=== PATIENT | female | born 1990 | race Caucasian/White ===

== ENCOUNTER 2016-12-23 22:41 | Emergency (ER) | payer MEDICAID ==
[~2016-12-23] VITALS: Ht 154.9 cm; Wt 54.0 kg
[2016-12-23 22:51] VITALS: Ht 154.9 cm; Wt 54.0 kg
[2016-12-24] MEDS ORDERED: ONDANSETRON (ODT) 4 MG TAB ODT STA (02:05)
[2016-12-24] MEDS ORDERED: ACETAMINOPHEN 325 MG TAB PO STA (02:05)
--- NOTE | 2016-12-24 02:32 | ERD ---
ER Documentation Chief Complaint Date/Time DATE: 12/24/16 TIME: 02:25 Chief Complaint ABD PAIN X 3 DAYS WITH N/V; AND SPOTTING; PT HPI 26-year-old female presents here in emergency department for complaints of lower abdominal pain nausea vomiting and vaginal spotting for 3 days. Patient just recently new that she was , patient supposed to have Depo-Provera shot, patient's LMP 10/16/2016. 3 para 2 0. Patient describes the pain as pelvic pain cramping pain 4/and scale, complaining of vaginal spotting. Patient also feels nauseated and dizzy at times much actually fell today landing on her back, and started to have the spotting afterwards. Patient complaining of lower abdominal pain, sharp pain, worst on movement accompanied with muscle spasms. Patient denies any numbness or tingling. ROS All systems reviewed and are negative except as per history of present illness. Medications Home Meds Active Scripts Acetaminophen* (Tylophen*) 500 Mg Capsule, 1 CAP PO Q6H Y for PAIN AND OR ELEVATED TEMP, #20 CAP Prov:EVA HUERTAS NP 12/24/16 Cephalexin* (Keflex*) 500 Mg Capsule, 500 MG PO QID for 10 Days, CAP Prov:EVA HUERTAS PANEL INSTALLER 12/24/16 Reported Medications [none] Unknown Strength No Conflict Check 12/24/16 Allergies Allergies: Coded Allergies: No Known Allergy (Verified Allergy, Unknown, 02/04/08) PMhx/Soc Medical and Surgical Hx: pt denies Medical Hx, pt denies Surgical Hx Hx Alcohol Use: No Hx Substance Use: No Hx Tobacco Use: No Smoking Status: Never smoker FmHx Family History: No coronary disease, No diabetes, No other Physical Exam Vitals Vital Signs Date Time Temp Pulse Resp B/P Pulse Ox O2 Delivery O2 Flow Rate FiO2 12/23/16 22:51 98.5 68 20 134/69 100 Physical Exam GENERAL: The patient is well developed and appropriate for usual state of health, in no apparent distress. CHEST: Clear to auscultation bilaterally. There are no rales, wheezes or rhonchi. HEART: Regular rate and rhythm. No murmurs, clicks, rubs or gallops. No S3 or S4. ABDOMEN: Soft, nontender and nondistended. Good bowel sounds. No rebound or guarding. No gross peritonitis. No gross organomegaly or masses. No Mcmanus sign or McBurney point tenderness. BACK: No midline or flank tenderness. EXTREMITIES: Equal pulses bilaterally. There is no peripheral clubbing, cyanosis or edema. No focal swelling or erythema. Full range of motion. Grossly neurovascularly intact. NEURO: Alert and oriented. Cranial nerves 2-12 intact. Motor strength in all 4 extremities with 5/5 strength. Sensation grossly intact. Normal speech and gait. SKIN: There is no apparent rash or petechia. The skin is warm and dry. HEMATOLOGIC AND LYMPHATIC: There is no evidence of excessive bruising or lymphedema. No gross cervical, axillary, or inguinal lymphadenopathy. : Small amount of blood in the vaginal vault, the cervical os is closed, no adnexal tenderness or cervical motion tenderness noted Result Diagram: 12/24/16 0245 Results 24 hrs Laboratory Tests Test 12/24/16 02:45 White Blood Count 10.110^3/ul Red Blood Count 4.5510^6/ul Hemoglobin 14.0g/dl Hematocrit 41.4% Mean Corpuscular Volume 91.0fl Mean Corpuscular Hemoglobin 30.8pg Mean Corpuscular Hemoglobin Concent 33.8g/dl Red Cell Distribution Width 13.1% Platelet Count 74804^3/UL Mean Platelet Volume 11.0fl Neutrophils % 74.3% Lymphocytes % 19.7% Monocytes % 4.8% Eosinophils % 0.3% Basophils % 0.6% Nucleated Red Blood Cells % 0.0/100WBC Neutrophils # 7.510^3/ul Lymphocytes # 2.010^3/ul Monocytes # 0.510^3/ul Eosinophils # 0.010^3/ul Basophils # 0.110^3/ul Nucleated Red Blood Cells # 0.010^3/ul Urine Color YELLOW Urine Clarity CLOUDY Urine pH 6.0 Urine Specific [place] 1.020 Urine Ketones 2+mg/dL Urine Nitrite NEGATIVEmg/dL Urine Bilirubin NEGATIVEmg/dL Urine Urobilinogen NEGATIVEmg/dL Urine Leukocyte Esterase 1+Tasneem/ul Urine Microscopic RBC 16/HPF Urine Microscopic WBC 22/HPF Urine Squamous Epithelial Cells MODERATE/HPF Urine Bacteria FEW/HPF Urine Mucus MODERATE/HPF Urine Hemoglobin 3+mg/dL Urine Glucose NEGATIVEmg/dL Urine Total Protein 1+mg/dl Beta HCG, Quantitative 53487.0mIU/ml Current Medications Medications (Trade) Dose Ordered Sig/Carrie Route PRN Reason Start Time Stop Time Status Last Admin Dose Admin Acetaminophen (Tylenol Tab) 650 mg ONCE STAT PO 12/24/16 02:05 12/24/16 02:06 DC 12/24/16 02:37 Ondansetron HCl (Zofran Odt) 4 mg ONCE STAT ODT 12/24/16 02:05 12/24/16 02:06 DC 12/24/16 02:37 Patient was given Zofran here in the emergency department. After treatment, patient was able to tolerate po fluids here in the emergency department without any vomiting. There is no signs and symptoms of dehydration. Patient was given medication for pain here in emergency department, after treatment, patient verbalized feeling much better. Patient's pain is improved. PROCEDURE: Obstetrical ultrasound. CLINICAL INDICATION: Vaginal bleeding. TECHNIQUE: Multiple sonographic images of the pelvis were obtained with transabdominal technique. Images were obtained with alston scale and color Doppler. COMPARISON: No prior studies are available for comparison. FINDINGS: There is an intrauterine gestational sac with a pole identified. heart tones of 161 beats per minute are identified. The crown-rump length averages 1.07 cm, compatible with 7 weeks and 1 day. The mean sac diameter averages 1.72 cm, compatible with 6 weeks and 3 days. A yolk sac is identified. A mild to moderate subchorionic collection is identified. There is no pelvic free fluid. Bilateral ovaries are not visualized. There is no suspicious adnexal mass identified. IMPRESSION: Single live intrauterine with an estimated gestational age of 6 weeks and 6 days, with an ultrasound NIRMAL of 08/13/2017. Mild to moderate subchorionic hemorrhage. Bilateral ovaries not visualized. .Jae Henry MD, Date Time Electronically viewed and signed by .Jae Henry MD, on 12/24/2016 04:07 .T/ CC: EVA HUERTAS PANEL INSTALLER Procedures/MDM Medical Decision Making: Patients vaginal bleeding is most likely consistent of possible threatened . Patient does not show any evidence of hypovolemic shock. Patients hemoglobin and hematocrit is stable. There is low suspicion for ectopic . MAI results show viable 6 weeks with subchorionic hemorrhage. BetaHCG Quantitative is appropriate for The patient is Rh+, does not need RhoGAM this time. There is no signs of symptoms of dehydration. There is low suspicion for sepsis. Patient appears well and is hemodynamically stable. His lactate most likely from a back contusion after fall. Patient's nausea vomiting dizziness most likely is from the hormones. No suspicion for neurologic emergencies or abdominal emergencies at this time. She also has urinary tract infection and will be treated. No symptoms of pyelonephritis. Disposition: Home. Condition: Stable Prescription was given for Keflex, Tylenol Instructions: Patient is advised to do bed rest, avoid heavy lifting, and avoid having sex until cleared by OB doctor. Patient is advised to follow up with OB doctor or here at the ER in 48 hours for reevaluation of symptoms, repeat beta HCG quantitative and ultrasound. Patient is advised that is symptoms are worst, severe bleeding, dizziness, severe abdominal pain, fever, worst signs and symptoms to return to the emergency department immediately. Departure Diagnosis: Primary Impression: Vaginal bleeding in Trimester: first trimester Qualified Code: O46.91 - Vaginal bleeding in , first trimester Additional Impressions: Intrauterine Subchorionic hemorrhage Fetus number: single or unspecified fetus Trimester: first trimester Qualified Code: O41.8X10 - Subchorionic hemorrhage, first trimester, not applicable or unspecified fetus UTI (urinary tract infection) Urinary tract infection type: acute cystitis Hematuria presence: with hematuria Qualified Code: N30.01 - Acute cystitis with hematuria Back contusion Encounter type: initial encounter Laterality: unspecified laterality Qualified Code: S20.229A - Back contusion, unspecified laterality, initial encounter Condition: Stable Patient Instructions: Contusion, Back, Understanding Urinary Tract Infections ( UTIs), Vaginal Bleed in Additional Instructions: Patient is advised to do bed rest, avoid heavy lifting, and avoid having sex until cleared by OB doctor. Patient is advised to follow up with OB doctor or here at the ER in 48 hours for reevaluation of symptoms, repeat beta HCG quantitative and ultrasound. Patient is advised that is symptoms are worst, severe bleeding, dizziness, severe abdominal pain, fever, worst signs and symptoms to return to the emergency department immediately. EVA HUERTAS NP Dec 24, 2016 02:32
[2016-12-24 02:59] LABS: ADD SCAN DIFF NO
[2016-12-24 03:14] LABS: ADD UMIC YES; UR ASCORBIC ACID NEGATIVE (NEGATIVE); UR BACTERIA FEW /HPF (NONE SEEN); UR BILIRUBIN (Dip) NEGATIVE (NEGATIVE); UR BLOOD (Dip) 3+ mg/dL (NEGATIVE); UR CLARITY CLOUDY (CLEAR); UR COLOR YELLOW (YELLOW); UR GLUCOSE (Dip) NEGATIVE (NEGATIVE); UR KETONES (Dip) 2+ mg/dL (NEGATIVE); UR LEUKOCYTE ESTERASE (Dip) 1+ Leu/ul (NEGATIVE); UR MUCUS MODERATE /HPF (NONE SEEN); UR NITRITE (Dip) NEGATIVE (NEGATIVE); UR RBC 16 /HPF (0-5); UR SQUAMOUS EPITHELIAL CELL MODERATE /HPF (FEW); UR TOTAL PROTEIN (Dip) 1+ mg/dl (NEGATIVE); UR UROBILINOGEN (Dip) NEGATIVE (NEGATIVE); UR WBC CLUMPS FEW /HPF (NONE SEEN)
[2016-12-24 03:30] LABS: BASOPHIL # 0.1 10^3/ul (0.0-0.1); BASOPHILS % 0.6 % (0.0-2.0); EOSINOPHILS % 0.3 % (0.0-7.0); HEMATOCRIT 41.4 % (37.0-47.0); LYMPHOCYTES % 19.7 % (15.0-51.0); MEAN CORPUSCULAR HEMOGLOBIN 30.8 pg (29.0-33.0); MEAN CORPUSCULAR HGB CONC 33.8 g/dl (32.0-37.0); MONOCYTE # 0.5 10^3/ul (0.3-0.9); MONOCYTES % 4.8 % (0.0-11.0); NEUTROPHIL # 7.5 10^3/ul (1.6-7.5); NEUTROPHILS % 74.3 % (39.0-77.0); PLATELET COUNT 235 10^3/UL (140-415); RED BLOOD COUNT 4.55 10^6/ul (4.20-5.40); RED CELL DISTRIBUTION WIDTH 13.1 % (11.5-14.5); WHITE BLOOD COUNT 10.1 10^3/ul (4.8-10.8)
--- NOTE | 2016-12-24 04:07 | RADRPT ---
PROCEDURE: Obstetrical ultrasound. CLINICAL INDICATION: Vaginal bleeding. TECHNIQUE: Multiple sonographic images of the pelvis were obtained with transabdominal technique. Images were obtained with laston scale and color Doppler. COMPARISON: No prior studies are available for comparison. FINDINGS: There is an intrauterine gestational sac with a pole identified. heart tones of 161 beat s per minute are identified. The crown-rump length averages 1.07 cm, compatible with 7 weeks a nd 1 day. The mean sac diameter averages 1.72 cm, compatible with 6 weeks and 3 days. A yolk sac is identified. A mild to moderate subchorionic collection is identified. There is no pelvic free fluid. Bilateral ovaries are not visualized. There is no suspicious adnexal mass identified. IMPRESSION: Single live intrauterine with an estimated gestational age of 6 weeks and 6 days, with an ultrasound NIRMAL of 08/13/2017. Mild to moderate subchorionic hemorrhage. Bilateral ovaries not visualized. .Jae Henry MD, Date Time Electronically viewed and signed by .Jae Henry MD, on 12/24/2016 04:07 .T/
[2016-12-24] MEDS ORDERED: ACET500C5 PO (04:18)
[2016-12-24] MEDS ORDERED: CEPH-443 PO (04:18)
[2016-12-24 04:35] VITALS: BP 128/72; PULSE 71; RESP 18
== END 2016-12-24 04:37 | disposition home or self-care (01) ==
LOC: FTE 22:41
DX: O46.91 Antepartum hemorrhage, unspecified, first trimester (principal); O41.8X10 Other specified disorders of amniotic fluid and membranes, first trimester, not applicable or unspecified; O23.11 Infections of bladder in pregnancy, first trimester; S20.229A Contusion of unspecified back wall of thorax, initial encounter; O9A.211 Injury, poisoning and certain other consequences of external causes complicating pregnancy, first trimester; W18.39XA Other fall on same level, initial encounter; Y92.9 Unspecified place or not applicable; Z3A.01 Less than 8 weeks gestation of pregnancy
CPT/HCPCS: 36415; 76801; 81001; 84702; 85025; 86900; 86901; Z7502; Z7610

== ENCOUNTER 2017-04-18 19:06 | Inpatient (IN) | payer MEDICAID ==
[~2017-04-18] VITALS: Ht 152.4 cm; Wt 49.1 kg
[~2017-04-18 19:06] MED LIST: ACET500C5 PO; CEPH-443 PO
[2017-04-18] MEDS ORDERED: EPHEDrine SULFATE 50 MG/5 ML SYG ONE (19:18)
[2017-04-18] MEDS ORDERED: OXYTOCIN 30 UNITS/LR 500 ML IV ONE (19:18)
[2017-04-18] MEDS ORDERED: ONDANSETRON 4 MG INJ ONE (19:19)
[2017-04-18] MEDS ORDERED: METOCLOPRAMIDE 10 MG INJ ONE (19:19)
[2017-04-18] MEDS ORDERED: OXYTOCIN 10 UNIT INJ ONE (19:19)
[2017-04-18] MEDS ORDERED: CEFAZOLIN 2 GM/50 ML (PMX) 50 ML IV SCH (19:30)
[2017-04-18] MEDS ORDERED: METHYLERGONOVINE 0.2 MG INJ IM PRN (19:30)
[2017-04-18] MEDS ORDERED: MISOPROSTOL 200 MCG TAB PR PRN (19:30)
[2017-04-18] MEDS ORDERED: CARBOPROST 250 MCG INJ IM PRN (19:30)
[2017-04-18] MEDS ORDERED: MAGNESIUM SULFATE 4 GM/100 ML 100 ML IVPB ONE (19:30)
[2017-04-18] MEDS ORDERED: MAGNESIUM SULFATE 20 GM/500 ML 500 ML IV SCH (19:30)
[2017-04-18] MEDS ORDERED: OXYTOCIN 30 UNITS/LR 500 ML IV PRN (19:30)
[2017-04-18] MEDS ORDERED: AMPICILLIN 2 GM/NS (PMX) 100 ML ONE (19:31)
[2017-04-18] MEDS ORDERED: MAGNESIUM SULFATE 4 GM/100 ML 0 ML ONE (19:32)
[2017-04-18] MEDS ORDERED: BETAMET NA PHOS/AC(6 MG/ML) 5ML INJ ONE (19:32)
[2017-04-18] MEDS ORDERED: MAGNESIUM SULFATE 20 GM/500 ML 500 ML IV ONE (19:32)
[2017-04-18 19:39] LABS: BASOPHIL # 0.1 10^3/ul (0.0-0.1); BASOPHILS % 0.5 % (0.0-2.0); EOSINOPHILS # 0.2 10^3/ul (0.0-0.5); EOSINOPHILS % 2.1 % (0.0-7.0); HEMATOCRIT 37.1 % (37.0-47.0); LYMPHOCYTES # 3.3 10^3/ul (0.8-2.9); LYMPHOCYTES % 36.7 % (15.0-51.0); MEAN CORPUSCULAR HEMOGLOBIN 32.8 pg (29.0-33.0); MEAN CORPUSCULAR VOLUME 93.7 fl (82.0-101.0); MEAN PLATELET VOLUME 11.9 fl (7.4-10.4); MONOCYTE # 0.7 10^3/ul (0.3-0.9); MONOCYTES % 7.1 % (0.0-11.0); NEUTROPHIL # 4.9 10^3/ul (1.6-7.5); NEUTROPHILS % 53.3 % (39.0-77.0); PLATELET COUNT 195 10^3/UL (140-415); RED BLOOD COUNT 3.96 10^6/ul (4.20-5.40); RED CELL DISTRIBUTION WIDTH 13.8 % (11.5-14.5); WHITE BLOOD COUNT 9.1 10^3/ul (4.8-10.8)
[2017-04-18 19:42] VITALS: BP 141/80; PULSE 100; RESP 20
[2017-04-18 19:43] LABS: INR 0.89; PARTIAL THROMBOPLASTIN TIME 24.7 Sec (25.0-35.0); PT RATIO 0.9
[2017-04-18] MEDS ORDERED: AMPICILLIN 2 GM/NS (PMX) 100 ML IVPB ONE (20:00)
[2017-04-18] MEDS ORDERED: LACTATED RINGER'S 1,000 ML IV SCH (20:00)
[2017-04-18] MEDS ORDERED: LACTATED RINGER'S 1,000 ML IV ONE (20:00)
--- NOTE | 2017-04-18 20:05 | RADRPT ---
PROCEDURE: US OB. CLINICAL INDICATION: Size and dates TECHNIQUE: Multiple sonographic images of the pelvis and gravid uterus were obtained. The images were reviewed on a PACS workstation. COMPARISON: US PELVIS 12/24/2016 FINDINGS: There is a single viable intrauterine gestation. Cardiac activity is present with 119 beats per min evelia. There is a breech presentation. The placenta is posterior. There is no evidence for an abruption or placenta previa. Measurements were made in order to determine age. The results are as follows: BPD =5.9 cm HC =22.1 cm AC =19.3 cm FL =4.3 cm Estimated gestational age of approximately 24 weeks and 0 days based on ultrasound measurements. Clinical age: 24 weeks and 3 days. The estimated date of delivery is 08/08/17, based on ultrasound measurements. The EFW = 652 g, 23.8%, based on LMP age. RPTAT: AA IMPRESSION: Single viable intrauterine gestation of approximately 24 weeks and 0 days based on ultrasound measu rements. Mild bradycardia. .Hipolito Dias MD, MD Date Time Electronically viewed and signed by .Hipolito Dias MD, on 04/18/2017 20:04 .S/
--- NOTE | 2017-04-18 20:42 | QN ---
Documentation Comment Patient was brought up from ER ,with bulging bag between her legs..It was at around 6;55PM A quick evaluation showed ,4cm cervix,bulging membrane and +FHR After a quick phone call with Dr. Bowman ,perinatalogist and discussed the information ,c/section were suggested .Her primary physician was informed by Nurses and He requested that laborist to take care of his patient. As my laborist call duties were over at 7 PM .Infomation were signed out to and he assumed the care. KEITH REYNOSO M.D. Apr 18, 2017 20:42
--- NOTE | 2017-04-18 20:52 | CONS ---
Date/Time of Note Date/Time of Note DATE: 04/18/17 TIME: 20:39 Consultation Date/Type/Reason Admit Date/Time Apr 18, 2017 at 19:08 Date of Consultation: Apr 18, 2017 Type of Consultation: Neonatology consultation Reason for Consultation Mother in labor with 23.2 week premature , dilated with bulging bag of oliveros and legs dangling in the vagina Referring Provider: CHEMA ANDRADE MD Hx of Present Illness Mother was brought in by paramedics through ER with labor and bulging bag of oliveros with the legs in the vagina. The team was called to ER for possible delivery and mother was subsequently moved to the labor and delivery. Mother was in labor and dilated to 4 cm of cervix by ultrasound for the OB. Mother is a 26-year-old 3 para 2 with 2 children who are doing well. The youngest was born in 2014. Based on ultrasound at 6 weeks of the fetus is 23.2 weeks. EDC was mentioned as 08/05/2017. An ultrasound was obtained which showed the fetus to be about 24 weeks with an estimated gestational age of 652 g. The plan was made for section as the fetus was in breech presentation. Mother also received 1 dose of betamethasone and was started on magnesium sulfate. The heart rate was low with an maximum of 119 bpm sometimes decreasing to 70s and 80s. Parents did not consent to section for a short period of time therefore the section was delayed. After the ultrasound was done when I was told that the parents were hesitant for the section I spoke with both parents Via reinforcing metal worker.Both are Irish-speaking only and Shaila the community engagement specialist interpreted. I discussed with the parents with the fetus being about 23-24 weeks with a survival rate for 20-30% up to 50%. I also discussed with them about the risk of respiratory distress, infant to be intubated in the delivery room and given Curosurf. Discussed about the high risk of intraventricular hemorrhage, high risk of complications for sepsis, NEC and neurodevelopmental delay and cerebral palsy. I conveyed to the parents about high risk of mortality and morbidity. Options were given about resuscitation including complete resuscitation with intubation ventilation and NICU care and infant to be monitored per NICU guidelines. I also gave the parents an option for limited resuscitation, no resuscitation with comfort measures. Patient's immediately quickly decided that they would not like any resuscitation on the fetus and to be provided only comfort care with some oxygen if needed and infant to be wrapped. I discussed the above with the the OB and will be decided to cancel the section as the was being performed for the fetus. Magnesium was turned off and the will be delivered by vaginal delivery. Only comfort measures will be provided. I reconfirmed from both parents that is what they want and the report confirmed that that is their desire not to provide any resuscitation to the . We will provide only comfort care when the is delivered. Exam/Review of Systems Results Result Diagram: 04/18/171914 Results 24 hrs Laboratory Tests Test 04/18/17 19:15 White Blood Count 9.1 Red Blood Count 3.96 L Hemoglobin 13.0 Hematocrit 37.1 Mean Corpuscular Volume 93.7 Mean Corpuscular Hemoglobin 32.8 Mean Corpuscular Hemoglobin Concent 35.0 Red Cell Distribution Width 13.8 Platelet Count 195 Mean Platelet Volume 11.9 H Neutrophils % 53.3 Lymphocytes % 36.7 Monocytes % 7.1 Eosinophils % 2.1 Basophils % 0.5 Nucleated Red Blood Cells % 0.0 Neutrophils # 4.9 Lymphocytes # 3.3 H Monocytes # 0.7 Eosinophils # 0.2 Basophils # 0.1 Nucleated Red Blood Cells # 0.0 Prothrombin Time 12.0 L Prothrombin Time Ratio 0.9 INR International Normalized Ratio 0.89 Activated Partial Thromboplast Time 24.7 L Medications Medications Current Medications Cefazolin Sodium/ Dextrose 50 ml @ 100 mls/hr ONCE IV ; Start 04/18/17 at 19: 30 Oxytocin/Lactated Ringer's 500 ml @ 0 mls/hr ONCE PRN IV For Hemorrhage Management; Start 04/18/17 at 19:30 Methylergonovine Maleate (Methergine) 0.2 mg ONCE PRN IM VAGINAL BLEEDING; Start 04/18/17 at 19:30 Carboprost Tromethamine (Hemabate) 250 mcg ONCE PRN IM VAGINAL BLEEDING; Start 04/18/17 at 19:30 Misoprostol 1000 mcg 1,000 mcg ONCE PRN MI VAGINAL BLEEDING; Start 04/18/17 at 19:30 Magnesium Sulfate 500 ml @ 50 mls/hr Q10H IV ; Start 04/18/17 at 19:30 Lactated Ringer's 1,000 ml @ 1,000 mls/hr Q1H ONCE IV ; Start 04/18/17 at 20: 00; Stop 04/18/17 at 20:59 Lactated Ringer's 1,000 ml @ 125 mls/hr Q8H IV ; Start 04/18/17 at 20:00 Ampicillin 100 ml @ 100 mls/hr ONCE ONCE IVPB ; Start 04/18/17 at 20:00; Stop 04/18/17 at 20:59 Ampicillin (Ampicillin 1 Gm/ NS (Pmx)) 50 ml @ 100 mls/hr Q4 IVPB ; Start 03/25 at 21:00 RISHI MCLAUGHLIN MD Apr 18, 2017 20:50
[2017-04-18] MEDS ORDERED: FENTAnyl 2MCG/ML-ROPIV 0.2% 100 ML BAG EPI SCH (21:00)
[2017-04-18] MEDS ORDERED: ONDANSETRON 4 MG INJ IV PRN (21:00)
[2017-04-18] MEDS ORDERED: AMPICILLIN 1 GM/NS (PMX) 50 ML IVPB SCH (21:00)
[2017-04-18] MEDS ORDERED: NALOXONE (0.4 MG/ML) INJ IV PRN (21:00)
[2017-04-18] MEDS ORDERED: EPHEDrine SULFATE 50 MG/5 ML SYG IV PRN (21:00)
[2017-04-18] MEDS ORDERED: DIPHENHYDRAMINE 50 MG INJ IV PRN (21:00)
--- NOTE | 2017-04-18 21:25 | QN ---
Documentation Comment Attended the delivery. was born with no heart rate. Tight cord around the neck 2 was noted at the time of delivery. weight was 535 g. It was a stillborn fetus at 23.2 weeks. Cord was cut, fetus wrapped and given to the parents to hold and discussed with OB as well as the parents about the fetus not having any heart rate. RISHI MCLAUGHLIN MD Apr 18, 2017 21:25
--- NOTE | 2017-04-18 21:34 | LDN ---
Date/Time of Note Date/Time of Note DATE: 04/18/17 TIME: 21:33 Delivery Summary delivery at 23.2 with pt only desiring comfort care. no intubation or resuscitation Weeks of Gestation 23.2 Placenta Delivered: Spontaneously Meconium: none Episiotomy: No Anesthesia type: Epidural Sponge & Needle done & correct: Yes All needle counts correct: Yes Any foreign bodies felt in the: No Problems: Delivery Information Sex Sex: female Apgars 1 Minute: 0 5 Minute: 0 10 Minute: 0 Suctioning Nose & mouth suctioned at mercedes: No Delee suction performed: No Umbilical Cord Cord Blood was obtained: No CHEMA ANDRADE MD Apr 18, 2017 21:34
[2017-04-18] MEDS: OXYTOCIN 30 UNITS/LR 500 ML IV SCH (22:12)
[2017-04-18] MEDS ORDERED: BETAMET NA PHOS/AC(6 MG/ML) 5ML INJ IM ONE (22:30)
[2017-04-18] MEDS ORDERED: OXYTOCIN 30 UNITS/LR 500 ML IV SCH (22:30)
[2017-04-18] MEDS ORDERED: OXYTOCIN 30 UNITS/LR 500 ML IVPB ONE (22:30)
[2017-04-19] VITALS (8 sets, daily range): BP systolic 108–134; BP diastolic 65–85; PULSE 72–104; RESP 18–20; Ht 152.4 cm; Wt 49.1 kg
--- NOTE | 2017-04-19 01:20 | HP ---
DATE OF ADMISSION: 04/18/2017 HISTORY OF PRESENT ILLNESS: The patient is a 26-year-old G3, P2, presents at 23 and 2/7 weeks compl aining of abdominal pain. The patient was examined and evaluated by the previous on-call laborist a nd was found to be 4 cm with legs in the vagina with bag protruding out of the vagina, the pat ient in active labor. PAST MEDICAL HISTORY: None. PAST SURGICAL HISTORY: None. PAST OBSTETRICAL HISTORY: NSV x2. MEDICATIONS: vitamins. PHYSICAL EXAMINATION: VITAL SIGNS: Stable. HEART: Regular rhythm. CHEST: Clear to auscultation bilaterally. ABDOMEN: Soft, nontender. No rebound or guarding. EXTREMITIES: There is no edema. DIAGNOSTIC DATA: Ultrasound done showed a 24 weeks' size infant, breech presentation, legs in the v agina. ASSESSMENT: This is a 23 and 2 weeks' in active labor, breech presentation. Discussion w as had by me and by NICU team and the stone layer regarding the outcomes of versus vagin al delivery, and the intact survivability of the infant. After all the discussions were done, the p atient desired not to have resuscitation done, not to have intubation done throughout the vaginal de livery with understanding that there is possibility of a demise during labor and afterwards. The patient understood after extensive discussion with the furniture sales consultant, by me on several occasions an d also by stone layer. The patient decided again to proceed with the vaginal delivery and does no t want resuscitation or intubation, and only desires comfort care. Dictated By: CHEMA ANDRADE MD /NTS Conf#: [id number] DID#: [id number]
[2017-04-19] MEDS ORDERED: CARBOPROST 250 MCG INJ IM PRN (04:00)
[2017-04-19] MEDS ORDERED: OXYTOCIN 30 UNITS/LR 500 ML IV PRN (04:00)
[2017-04-19] MEDS ORDERED: METHYLERGONOVINE 0.2 MG INJ IM PRN (04:00)
[2017-04-19] MEDS ORDERED: HYDROCODONE/APAP (5/325) TAB PO PRN ×2 (04:00)
[2017-04-19] MEDS ORDERED: LANOLIN 7 GM TUBE TOP PRN (04:00)
[2017-04-19] MEDS ORDERED: WITCH HAZEL/GLYCERIN PAD PR PRN (04:00)
[2017-04-19] MEDS ORDERED: MISOPROSTOL 200 MCG TAB PR PRN (04:00)
[2017-04-19] MEDS: IBUPROFEN 800 MG TAB PO SCH ×3 (06:20→19:38)
[2017-04-19] MEDS: LACTATED RINGER'S 1,000 ML IV* SCH ×3 (07:02→20:00)
[2017-04-19] MEDS: SENNA/DOCUSATE NA (8.6MG/50MG) TAB PO SCH ×2 (10:26→21:25)
--- NOTE | 2017-04-19 15:09 | QN ---
Documentation Comment ppd1 pt doing well vss exam wnl a/p ppd1 continue care dc home in am CHEMA ANDRADE MD Apr 19, 2017 15:09
[2017-04-19] MEDS: OXYTOCIN 30 UNITS/LR 500 ML IV SCH (20:00)
[2017-04-20] MEDS: IBUPROFEN 800 MG TAB PO SCH ×2 (01:09→08:03)
[2017-04-20 01:11] VITALS: BP 111/57; PULSE 83
[2017-04-20] MEDS: LACTATED RINGER'S 1,000 ML IV* SCH (03:42)
[2017-04-20 04:31] VITALS: BP 118/65; PULSE 76; RESP 18
[2017-04-20 06:36] LABS: BASOPHILS % 0.5 % (0.0-2.0); EOSINOPHILS % 0.1 % (0.0-7.0); HEMATOCRIT 30.7 % (37.0-47.0); LYMPHOCYTES # 2.4 10^3/ul (0.8-2.9); LYMPHOCYTES % 27.3 % (15.0-51.0); MEAN CORPUSCULAR HEMOGLOBIN 31.8 pg (29.0-33.0); MEAN CORPUSCULAR HGB CONC 32.6 g/dl (32.0-37.0); MEAN CORPUSCULAR VOLUME 97.8 fl (82.0-101.0); MEAN PLATELET VOLUME 11.8 fl (7.4-10.4); MONOCYTE # 0.7 10^3/ul (0.3-0.9); MONOCYTES % 8.1 % (0.0-11.0); NEUTROPHIL # 5.5 10^3/ul (1.6-7.5); NEUTROPHILS % 63.5 % (39.0-77.0); PLATELET COUNT 158 10^3/UL (140-415); RED BLOOD COUNT 3.14 10^6/ul (4.20-5.40); RED CELL DISTRIBUTION WIDTH 14.9 % (11.5-14.5); WHITE BLOOD COUNT 8.6 10^3/ul (4.8-10.8)
[2017-04-20] MEDS ORDERED: INFLUENZA VIRUS VACCINE 0.5 ML SYG IM* ONE (08:00)
[2017-04-20 08:56] VITALS: BP 120/73; PULSE 62; RESP 19
--- NOTE | 2017-04-20 09:01 | PD.PPDC ---
BARREL POLISHER Discharge Instruction Condition Patient Condition: Good Diet Diet: Resume Regular Diet Activity/Restrictions Activity: Normal Activity May Shower Restrictions: No Exercising No Lifting No Driving No Sexual Activity Nothing in the Vagina No [place] No Tampons, douche Follow-up Follow-up with Physician: 2, Week/Weeks Provider Information: instructions given recommended to make appointment to be seen at the clinic in 2 weeks Return to clinic for FINISH SPECIALIST Instructions: Fever greater than 101 Chills Worsening abdominal pain Excessive Vaginal Bleeding More than 2 pads per hour Unable to tolerate diet OB Instructions: Breast Tenderness Depression Blurried Vision Headache RAFIA KIRK MD Apr 20, 2017 09:01
--- NOTE | 2017-04-20 09:08 | DS ---
Date/Time of Note Date/Time of Note DATE: 04/20/17 TIME: 09:04 Discharge Summary Admission/Discharge Info Admit Date/Time Apr 18, 2017 at 19:08 Discharge Date/Time April 20, 2017 9 AM Discharge Diagnosis 23 weeks demise Patient Condition: Good Procedures Spontaneous vaginal delivery of the 23 weeks demised baby Hx of Present Illness 23 weeks with demise, 4 cm dilated bulging membrane Hospital Course Mother was brought in by paramedics through ER with labor and bulging bag of oliveros with the legs in the vagina. The team was called to ER for possible delivery and mother was subsequently moved to the labor and delivery. Mother was in labor and dilated to 4 cm of cervix by ultrasound for the OB. Mother is a 26-year-old 3 para 2 with 2 children who are doing well. The youngest was born in 2014. Based on ultrasound at 6 weeks of the fetus is 23.2 weeks. EDC was mentioned as 08/05/2017. An ultrasound was obtained which showed the fetus to be about 24 weeks with an estimated gestational age of 652 g. The plan was made for section as the fetus was in breech presentation. Mother also received 1 dose of betamethasone and was started on magnesium sulfate. The heart rate was low with an maximum of 119 bpm sometimes decreasing to 70s and 80s. Parents did not consent to section for a short period of time therefore the section was delayed. After the ultrasound was done when I was told that the parents were hesitant for the section I spoke with both parents Via spaghetti press helper.Both are Turkmen-speaking only and Shaila the sustainable communities designer interpreted. I discussed with the parents with the fetus being about 23-24 weeks with a survival rate for 20-30% up to 50%. I also discussed with them about the risk of respiratory distress, to be intubated in the delivery room and given Curosurf. Discussed about the high risk of intraventricular hemorrhage, high risk of complications for sepsis, NEC and neurodevelopmental delay and cerebral palsy. I conveyed to the parents about high risk of mortality and morbidity. Options were given about resuscitation including complete resuscitation with intubation ventilation and NICU care and to be monitored per NICU guidelines. I also gave the parents an option for limited resuscitation, no resuscitation with comfort measures. Patient's immediately quickly decided that they would not like any resuscitation on the fetus and to be provided only comfort care with some oxygen if needed and infant to be wrapped. I discussed the above with the the OB and will be decided to cancel the section as the was being performed for the fetus. Magnesium was turned off and the infant will be delivered by vaginal delivery. Only comfort measures will be provided. I reconfirmed from both parents that is what they want and the report confirmed that that is their desire not to provide any resuscitation to the . We will provide only comfort care when the infant is delivered. Home Meds Active Scripts Acetaminophen* (Tylophen*) 500 Mg Capsule, 1 CAP PO Q6H Y for PAIN AND OR ELEVATED TEMP, #20 CAP Prov:EVA HUERTAS 911 EMERGENCY SERVICES DISPATCHER 12/24/16 Cephalexin* (Keflex*) 500 Mg Capsule, 500 MG PO QID for 10 Days, CAP Prov:EVA HUERTAS 911 EMERGENCY SERVICES DISPATCHER 12/24/16 Reported Medications [none] Unknown Strength No Conflict Check 12/24/16 Follow-up Plan instruction given recommended patient to be seen at the clinic in 2 weeks Primary Care Provider Care Physician No Primary Time spent on discharge: < 30 minutes Pending Labs Laboratory Tests Test 04/20/17 06:18 White Blood Count 8.610^3/ul (4.8-10.8) Red Blood Count 3.1410^6/ul (4.20-5.40) Hemoglobin 10.0g/dl (12.0-16.0) Hematocrit 30.7% (37.0-47.0) Mean Corpuscular Volume 97.8fl (82.0-101.0) Mean Corpuscular Hemoglobin 31.8pg (29.0-33.0) Mean Corpuscular Hemoglobin Concent 32.6g/dl (32.0-37.0) Red Cell Distribution Width 14.9% (11.5-14.5) Platelet Count 02494^3/UL (140-415) Mean Platelet Volume 11.8fl (7.4-10.4) Neutrophils % 63.5% (39.0-77.0) Lymphocytes % 27.3% (15.0-51.0) Monocytes % 8.1% (0.0-11.0) Eosinophils % 0.1% (0.0-7.0) Basophils % 0.5% (0.0-2.0) Nucleated Red Blood Cells % 0.0/100WBC (0.0-0.0) Neutrophils # 5.510^3/ul (1.6-7.5) Lymphocytes # 2.410^3/ul (0.8-2.9) Monocytes # 0.710^3/ul (0.3-0.9) Eosinophils # 0.010^3/ul (0.0-0.5) Basophils # 0.010^3/ul (0.0-0.1) Nucleated Red Blood Cells # 0.010^3/ul (0.0-0.0) RAFIA KIRK MD Apr 20, 2017 09:08
== END 2017-04-20 10:40 | disposition home or self-care (01) | DRG 775 ==
LOC: OBT 19:06 → L-D 19:08 → OBG 04-19 02:45
PROVIDERS: ADMIT Obstetrics & Gynecology; ATTEND Obstetrics & Gynecology
PROC: 10E0XZZ Delivery of Products of Conception, External Approach (ICD-10-PCS; principal; 2017-04-18)
DX: O60.13X0 Preterm labor second trimester with preterm delivery third trimester, not applicable or unspecified (principal); O32.1XX0 Maternal care for breech presentation, not applicable or unspecified; O02.1 Missed abortion; Z3A.23 23 weeks gestation of pregnancy; Z37.1 Single stillbirth
CPT/HCPCS: 62319; 76815; 85025; 85610; 85730; 86592; 86850; 86900; 86901; 90686; 99464; J0290; J0690; J0702; J2405; J2590; J2765; J3010; J3475; J7120

== ENCOUNTER 2017-05-21 15:59 | Observation (INO) | payer MEDICAID ==
[~2017-05-21] VITALS: Ht 152.4 cm; Wt 56.2 kg
[~2017-05-21 15:59] MED LIST changes: -CEPH-443 PO
[2017-05-21 18:12] LABS: BASOPHIL # 0.1 10^3/ul (0.0-0.1); BASOPHILS % 0.9 % (0.0-2.0); EOSINOPHILS # 0.3 10^3/ul (0.0-0.5); EOSINOPHILS % 3.5 % (0.0-7.0); HEMATOCRIT 38.4 % (37.0-47.0); HEMOGLOBIN 13.2 g/dl (12.0-16.0); LYMPHOCYTES # 2.2 10^3/ul (0.8-2.9); LYMPHOCYTES % 27.1 % (15.0-51.0); MEAN CORPUSCULAR HEMOGLOBIN 31.4 pg (29.0-33.0); MEAN CORPUSCULAR HGB CONC 34.4 g/dl (32.0-37.0); MEAN CORPUSCULAR VOLUME 91.4 fl (82.0-101.0); MEAN PLATELET VOLUME 9.9 fl (7.4-10.4); MONOCYTE # 0.4 10^3/ul (0.3-0.9); MONOCYTES % 5.1 % (0.0-11.0); NEUTROPHILS % 63.1 % (39.0-77.0); PLATELET COUNT 224 10^3/UL (140-415); RED CELL DISTRIBUTION WIDTH 11.9 % (11.5-14.5)
--- NOTE | 2017-05-21 19:04 | RADRPT ---
PROCEDURE: US Pelvis. CLINICAL INDICATION: Vaginal bleeding, pelvic pain 6 weeks TECHNIQUE: Multiple sonographic images of the pelvis were obtained utilizing a transabdominal and endovaginal technique. The images were reviewed on a PACS workstation. COMPARISON: OB ultrasound of 04/18/2017 FINDINGS: The uterus measures 9.2 x 4.8 x 6.5 cm. The thickness of the endometrium equals 1.7 cm. There is mix ed echogenicity material with vascular flow in the endometrial cavity suggestive of fluid, blood pro ducts and retained products of conception. The right ovary measures 4 x 3.5 x 3.6 cm and contains a 3.2 x 2.4 x 2.4 cm simple appearing cyst. Color flow and spectral analysis demonstrates normal betty rial flow in the right ovary. The left ovary is not seen. There is appearance of relatively small am ount of complex fluid with echoes in the cul-de-sac suggestive of hemoperitoneum. IMPRESSION: Thickened endometrium. Mixed echogenicity material and vascular flow in the endometrial cavity sugge stive of fluid, blood products and retained products of conception. 3.2 cm right ovarian simple cyst . Left ovary not seen. There is appearance of relatively small amount of complex fluid with echoes i n the cul-de-sac suggestive of hemoperitoneum with an approximate 2.4 x 1.4 cm blood clot. Please se e above. RPTAT: HJES .Kailash Cuenca MD, Date Time Electronically viewed and signed by .Kailash Cuenca MD, on 05/21/2017 19:04 .S/
[2017-05-21 19:40] LABS: ALBUMIN 4.5 g/dl (3.3-4.9); ALBUMIN/GLOBULIN RATIO 1.36; BILIRUBIN,INDIRECT 0.4 mg/dl (0-1.1); BILIRUBIN,TOTAL 0.4 mg/dl (0.2-1.3); CALCIUM 9.3 mg/dl (8.4-10.2); CREATININE 0.55 mg/dl (0.44-1.00); POTASSIUM 4.4 mmol/L (3.5-5.1); TOTAL PROTEIN 7.8 g/dl (6.1-8.1)
[2017-05-21 20:08] LABS: URINE BLOOD (Dip) POC 3+ (NEGATIVE)
[2017-05-21 20:10] LABS: INR 0.92; PROTIME 12.4 Sec (11.9-14.9)
[2017-05-21 20:11] LABS: PARTIAL THROMBOPLASTIN TIME 26.9 Sec (25.0-35.0)
--- NOTE | 2017-05-21 20:59 | RADRPT ---
PROCEDURE: CT abdomen and pelvis without intravenous contrast. CLINICAL INDICATION: Lower abdominal pain. TECHNIQUE: CT of the abdomen/pelvis was performed utilizing axial images with reconstructions in s agittal and coronal planes. The administered radiation dose is CTDI 5.07 mGy, DLP 251.35 mGy-cm. One or more of the following dose reduction techniques were used: Automated exposure control, Adjustmen t of the mA and/or kV according to patient size, or Use of iterative reconstruction technique. DICOM images are available. COMPARISON: There are no similar studies submitted for comparison. Ultrasound of the pelvis from the same day. FINDINGS: Evaluation is moderately limited due to motion degradation. Lung bases: The lung bases are clear.The heart is normal size without pericardial effusion. CT ABDOMEN: Evaluation of the abdominal viscera is limited without intravenous contrast. Gastrointestinal tract: There is no bowel obstruction.The appendix is normal size without inflammato ry changes.No abnormal colonic wall thickening is identified.There is no pneumoperitoneum. Liver: The liver is normal in size.There is no intrahepatic ductal dilatation. Gallbladder: The gallbladder is grossly unremarkable. Pancreas: The pancreas is grossly unremarkable. Spleen: The spleen is normal in size. Kidneys: The kidneys are normal in size and contour.No renal calculi identified.There is no evidence of hydronephrosis. Adrenal glands: The bilateral adrenal glands are unremarkable. Retroperitoneum: There is no retroperitoneal adenopathy.The aorta is normal in caliber. CT PELVIS: Pelvic organs: The uterus is mildly enlarged. There is a right ovarian cyst. Bladder: The bladder is unremarkable. There is mild pelvic free fluid. No pelvic adenopathy is identified. Osseous structures: No destructive lytic or blastic osseous lesion is identified. IMPRESSION: Evaluation of the abdominal viscera is limited without intravenous contrast. Evaluation is moderately limited due to motion degradation. 1. No acute abdominal pathology. 2. There is a right ovarian cyst. There is mild pelvic free fluid. Please refer to ultrasound of the pelvis report from the same day. Further findings as detailed above. RPTAT: HVF .Jovi Hall MD, MD Date Time Electronically viewed and signed by .Jovi Hall MD, MD on 05/21/2017 20:58 .F/
--- NOTE | 2017-05-21 21:33 | ERD ---
ER Documentation Chief Complaint Chief Complaint ap x 2 days (ABRAN HIDALGO PA-C) HPI Patient is a 26-year-old female who presents to the ED for concerns of pelvic pain 2 days. Patient stated that approximately a month and a half ago, she went into labor at 23 weeks. Patient had vaginal delivery of fetus. Patient states that her fetus did not survive. Patient states that since that time of the delivery, she has had ongoing vaginal bleeding. Patient reports using 3-4 pads per day. Patient states she does pass blood clots occasionally. Patient states 2 days ago she developed severe, pelvic pain. Patient states the pain comes and goes. Patient denies any fevers, chills, nausea, vomiting, dysuria, frequency, urgency or diarrhea. Patient denies any lightheadedness or dizziness. Patient does not recall her VARIOUS EXCEPTIONALITIES TEACHER's name however she states she goes to [facility]. (ABRAN HIDALGO PA-C) ROS All systems reviewed and are negative except as per history of present illness. (ABRAN HIDALGO PA-C) Medications Home Meds Active Scripts Acetaminophen* (Tylophen*) 500 Mg Capsule, 1 CAP PO Q6H Y for PAIN AND OR ELEVATED TEMP, #20 CAP Prov:COURTNEY MADRID NP 12/24/16 Allergies Allergies: Coded Allergies: No Known Allergy (Verified , 04/19/17) PMhx/Soc Medical and Surgical Hx: pt denies Medical Hx, pt denies Surgical Hx Hx Alcohol Use: No Hx Substance Use: No Hx Tobacco Use: No Smoking Status: Never smoker (ABRAN HIDALGO PA-C) Physical Exam Vitals Vital Signs Date Time Temp Pulse Resp B/P Pulse Ox O2 Delivery O2 Flow Rate FiO2 05/21/17 21:50 98.0 66 18 126/74 98 Room Air 05/21/17 16:02 98.2 99 18 153/75 99 (COURTNEY MADRID NP) Physical Exam GENERAL: Well-developed, well-nourished male. Appears in no acute distress. HEAD: Normocephalic, atraumatic. EYES: Pupils are equally reactive bilaterally. EOMs grossly intact. No conjunctival erythema. ENT: Moist mucous membranes. No uvula deviation. No kissing tonsils. NECK: Supple. No meningismus. Normal range of motion of the neck. LUNG: Clear to auscultation bilaterally. No rhonchi, wheezing, rales or coarse breath sounds. HEART: Regular rate and rhythm. No murmurs, rubs or gallops. ABDOMEN: No scars, ecchymosis or rashes noted. Soft and nondistended. Tender to palpation over the suprapubic region. Positive bowel sounds in all four quadrants. No rebound tenderness, no guarding. No peritoneal signs noted. (-) McBurney's point tenderness. FEMALE GENITALIA: Exam was completed with a RN personnel technician present. Normal external female genitalia. Blood noted in the vaginal canal. Os appears open with active vaginal bleeding. EXTREMITIES: Equal pulses bilaterally. No peripheral clubbing, cyanosis or edema. NEUROLOGIC: Alert and oriented. Moving all four extremities without any difficulty. Normal speech. Steady gait. SKIN: Normal color. Warm and dry. No rashes or lesions. (ABRAN HIDALGO PA-C) Result Diagram: 05/21/17180405/21/171804 Results 24 hrs Laboratory Tests Test 05/21/17 18:05 05/21/17 19:35 05/21/17 20:09 White Blood Count 8.010^3/ul Red Blood Count 4.2010^6/ul Hemoglobin 13.2g/dl Hematocrit 38.4% Mean Corpuscular Volume 91.4fl Mean Corpuscular Hemoglobin 31.4pg Mean Corpuscular Hemoglobin Concent 34.4g/dl Red Cell Distribution Width 11.9% Platelet Count 90534^3/UL Mean Platelet Volume 9.9fl Neutrophils % 63.1% Lymphocytes % 27.1% Monocytes % 5.1% Eosinophils % 3.5% Basophils % 0.9% Nucleated Red Blood Cells % 0.0/100WBC Neutrophils # 5.010^3/ul Lymphocytes # 2.210^3/ul Monocytes # 0.410^3/ul Eosinophils # 0.310^3/ul Basophils # 0.110^3/ul Nucleated Red Blood Cells # 0.010^3/ul Sodium Level 140mmol/L Potassium Level 4.4mmol/L Chloride Level 104mmol/L Carbon Dioxide Level 24mmol/L Anion Gap 16 Blood Urea Nitrogen 9mg/dl Creatinine 0.55mg/dl Glucose Level 97mg/dl Calcium Level 9.3mg/dl Total Bilirubin 0.4mg/dl Direct Bilirubin 0.00mg/dl Indirect Bilirubin 0.4mg/dl Aspartate Amino Transf (AST/SGOT) 44IU/L Alanine Aminotransferase (ALT/SGPT) 54IU/L Alkaline Phosphatase 134IU/L Total Protein 7.8g/dl Albumin 4.5g/dl Globulin 3.30g/dl Albumin/Globulin Ratio 1.36 Beta HCG, Quantitative < 2.4mIU/ml Prothrombin Time 12.4Sec Prothrombin Time Ratio 1.0 INR International Normalized Ratio 0.92 Activated Partial Thromboplast Time 26.9Sec Bedside Urine pH (LAB) 6.0 Bedside Urine Protein (LAB) Trace Bedside Urine Glucose (UA) Negative Bedside Urine Ketones (LAB) Negative Bedside Urine Blood 3+ Bedside Urine Nitrite (LAB) Negative Bedside Urine Leukocyte Esterase (L Negative (COURTNEY MADRID NP) Procedures/MDM ED COURSE: The patient was stable throughout ED course. I kept the patient and/or family informed of laboratory and diagnostic imaging results throughout the ED course. DIAGNOSTIC IMAGING: Read by radiologist. Patient: KASIE JENKINS : 1990 Age: 26 Sex: F MR #: [id number] DOS: 05/21/17 1737 Ordering MD: ABRAN HIDALGO PA-C Location: [facility] Room/Bed: PROCEDURE: US Pelvis. CLINICAL INDICATION: Vaginal bleeding, pelvic pain 6 weeks TECHNIQUE: Multiple sonographic images of the pelvis were obtained utilizing a transabdominal and endovaginal technique. The images were reviewed on a PACS workstation. COMPARISON: OB ultrasound of 04/18/2017 FINDINGS: The uterus measures 9.2 x 4.8 x 6.5 cm. The thickness of the endometrium equals 1.7 cm. There is mixed echogenicity material with vascular flow in the endometrial cavity suggestive of fluid, blood products and retained products of conception. The right ovary measures 4 x 3.5 x 3.6 cm and contains a 3.2 x 2.4 x 2.4 cm simple appearing cyst. Color flow and spectral analysis demonstrates normal arterial flow in the right ovary. The left ovary is not seen. There is appearance of relatively small amount of complex fluid with echoes in the cul-de -sac suggestive of hemoperitoneum. IMPRESSION: Thickened endometrium. Mixed echogenicity material and vascular flow in the endometrial cavity suggestive of fluid, blood products and retained products of conception. 3.2 cm right ovarian simple cyst. Left ovary not seen. There is appearance of relatively small amount of complex fluid with echoes in the cul-de -sac suggestive of hemoperitoneum with an approximate 2.4 x 1.4 cm blood clot. Please see above. RPTAT: HJES .Kailash Cuenca MD, MD Date Time Electronically viewed and signed by .Kaliash Cuenca MD, on 05/21/2017 19:04 .S/ CC: ABRAN HIDALGO PA-C DIAGNOSTIC IMAGING REPORT Patient: KASIE JENKINS : 1990 Age: 26 Sex: F MR #: [id number] DOS: 05/21/17 2030 Ordering MD: ABRAN HIDALGO PA-C Location: E Room/Bed: PROCEDURE: CT abdomen and pelvis without intravenous contrast. CLINICAL INDICATION: Lower abdominal pain. TECHNIQUE: CT of the abdomen/pelvis was performed utilizing axial images with reconstructions in sagittal and coronal planes. The administered radiation dose is CTDI 5.07 mGy, DLP 251.35 mGy-cm. One or more of the following dose reduction techniques were used: Automated exposure control, Adjustment of the mA and/or kV according to patient size, or Use of iterative reconstruction technique. DICOM images are available. COMPARISON: There are no similar studies submitted for comparison. Ultrasound of the pelvis from the same day. FINDINGS: Evaluation is moderately limited due to motion degradation. Lung bases: The lung bases are clear.The heart is normal size without pericardial effusion. CT ABDOMEN: Evaluation of the abdominal viscera is limited without intravenous contrast. Gastrointestinal tract: There is no bowel obstruction.The appendix is normal size without inflammatory changes.No abnormal colonic wall thickening is identified.There is no pneumoperitoneum. Liver: The liver is normal in size.There is no intrahepatic ductal dilatation. Gallbladder: The gallbladder is grossly unremarkable. Pancreas: The pancreas is grossly unremarkable. Spleen: The spleen is normal in size. Kidneys: The kidneys are normal in size and contour.No renal calculi identified.There is no evidence of hydronephrosis. Adrenal glands: The bilateral adrenal glands are unremarkable. Retroperitoneum: There is no retroperitoneal adenopathy.The aorta is normal in caliber. CT PELVIS: Pelvic organs: The uterus is mildly enlarged. There is a right ovarian cyst. Bladder: The bladder is unremarkable. There is mild pelvic free fluid. No pelvic adenopathy is identified. Osseous structures: No destructive lytic or blastic osseous lesion is identified. IMPRESSION: Evaluation of the abdominal viscera is limited without intravenous contrast. Evaluation is moderately limited due to motion degradation. 1. No acute abdominal pathology. 2. There is a right ovarian cyst. There is mild pelvic free fluid. Please refer to ultrasound of the pelvis report from the same day. Further findings as detailed above. RPTAT: HVF .Jovi Hall MD, MD Date Time Electronically viewed and signed by .Jovi Hall MD, on 05/21/2017 20:58 .F/ CC: ABRAN HIDALGO PA-C MEDICAL DECISION MAKING: This is 26-year-old female, who presents to the ED for concerns of pelvic pain 2 days. Patient went into labor approximately a month and a half ago and had a vaginal delivery at that time of her fetus. Patient's fetus did not survive. Patient states since that time she has had ongoing vaginal bleeding. Patient reports occasional blood clot passage. Vital signs were reviewed. Patient was afebrile. Patient was not hypoxic. Patient was hemodynamically stable at initial presentation. Urine test was negative. CBC showed no evidence of systemic infection or severe anemia. CMP showed no evidence of electrolyte abnormalities, severe acidosis, alkalosis, renal failure, or liver disease. PT/ INR were within normal limits. Patient was O+. UA showed no evidence of acute infection, 3+ blood was noted. Pelvic US showed Thickened endometrium. Mixed echogenicity material and vascular flow in the endometrial cavity suggestive of fluid, blood products and retained products of conception. 3.2 cm right ovarian simple cyst. Left ovary not seen. There is appearance of relatively small amount of complex fluid with echoes in the cul-de-sac suggestive of hemoperitoneum with an approximate 2.4 x 1.4 cm blood clot. Please see above. Discussed pelvic ultrasound findings with my supervising physician Dr. Olea. Dr. Olea advised me to contact the VARIOUS EXCEPTIONALITIES TEACHER [employer] principal solution specialist. I spoke to Dr. Oneil who advised me to order a CT scan. Dr. Olea also did examine the patient and agreed that the patient did not have any peritoneal signs. Due to CT scan limitations, CT scan without IV contrast was ordered. I was unable to order CT scan with contrast. CT scan without IV contrast of the abdomen and pelvis showed 1. No acute abdominal pathology. 2. There is a right ovarian cyst. There is mild pelvic free fluid. Please refer to ultrasound of the pelvis report from the same day. I re-contacted Dr. Oneil who stated that she would examine the patient in the ED. Awaiting Dr. Oneil's arrival at this time. Case with be signed out to Courtney Madrid NP. Final disposition decision pending. Patient was stable at time of transfer of care to [facility]. (ABRAN HIDALGO PA-C) Katerine GARCIA signed out patient to ma, Dr Oneil, OB specialist evaluated patient , she will be admitted to the hospital, she recommended started the patient with IV clindamycin IV gentamicin here in the emergency department. Patient is stable at this time. No active bleeding at this time. No symptoms of any abdominal emergency at this time. Patient will be admitted to the hospital for further evaluation and management. (COURTNEY MADRID NP) Departure Diagnosis: Primary Impression: Retained products of conception Additional Impression: Ovarian cyst Laterality: right Qualified Code: N83.201 - Cyst of right ovary Condition: Stable ABRAN HIDALGO PA-C May 21, 2017 21:32 COURTNEY MADRID NP May 21, 2017 22:06
[2017-05-21 21:50] VITALS: TEMP 98
[2017-05-21] MEDS ORDERED: CLINDAMYCIN 900 MG/D5W (PMX) 50 ML IVPB SCH (22:30)
[2017-05-21] MEDS ORDERED: GENTAMICIN 120 MG/NS (PMX) 100 ML IVPB SCH (22:30)
[2017-05-21] MEDS ORDERED: ONDANSETRON 4 MG INJ IV PRN (23:00)
[2017-05-21] MEDS ORDERED: ACETAMINOPHEN 325 MG TAB PO PRN (23:00)
--- NOTE | 2017-05-21 23:19 | CONS ---
Date/Time of Note Date/Time of Note DATE: 05/21/17 TIME: 23:08 Assessment/Plan Assessment/Plan Chief Complaint/Hosp Course Status post delivery at 24+ weeks Continuous vaginal bleeding after delivery Ultrasound consistent with retained products of conception There is mild to moderate fundal tenderness in palpation. Patient is afebrile. No evidence of sepsis patient is hemodynamically stable Discussed with the patient and her need for D&C. Risk and benefit of procedure discussed with the patient including risk of infection, bleeding uterine perforation and damage to adjacent structures including bowel and bladder and possibility and risk for blood transfusion and risk of blood transfusion including but not limited to blood borne infection including HIV, hepatitis B and C and transfusion reaction. Informed consent was obtained We will start the patient on IV clindamycin and gentamicin Keep the patient n.p.o. Book for ORFor D&C All questions were answered Patient and verbalized understanding and sound had no questions Problems: Consultation Date/Type/Reason Admit Date/Time 05/21/2017 Reason for Consultation Retained POC after delivery Hx of Present Illness 26 years old female with with a history of delivery and a month ago , status post vaginal delivery at this facility patient presented to emergency room with complaint of continuous vaginal bleeding for the past month on a daily basis. Bleeding is moderate. Patient denies any fever or chills. She denies any abnormal vaginal discharge. Had a pelvic ultrasound and CT that confirmed evidence of retained products of conception As well as a hemorrhagic cyst in the right ovary with a small amount of fluid in the pelvis. Patient reports had been seen in her clinic multiple times after she continued to have vaginal bleeding, no ultrasound her assessment was done. Currently patient denies any dizziness, lightheadedness, shortness of breath or chest pain. She denies any fatigue her vitals are stable. had her care in last at [facility] for her she was given Depo-Provera while she was . Constitutional: no complaints Eyes: no complaints ENT: no complaints Respiratory: no complaints Cardiovascular: no complaints Genitourinary: bleeding, other (Pain) Skin: no complaints Neurologic: no complaints Endocrine: no complaints Psychological: no complaints Immunologic: no complaints Past Medical History Denies any medical problems Past Surgical History Past Surgical Hx: no surgical history Family History Significant Family History: no pertinent family hx Social History Alcohol Use: none Smoking Status: Never smoker Drug Use: none Exam/Review of Systems Vital Signs Vitals Vital Signs Date Time Temp Pulse Resp B/P Pulse Ox O2 Delivery O2 Flow Rate FiO2 05/21/17 21:50 98.0 66 18 126/74 98 Room Air Exam Constitutional: alert, oriented, well developed Psych: nl mood/affect, no complaints ENMT: nl external ears & nose, nl lips & teeth Neck: supple Respiratory: clear to auscultation, normal air movement Cardiovascular: nl pulses, regular rate and rhythm Gastrointestinal: soft, tender (Mild tenderness in the lower abdomen) Genitourinary - Female: uterus (There is moderate tenderness in palpation of the fundus of the uterus with mild tenderness in palpation of both lower abdomen speculum examination no abnormal vaginal discharge. Scant amount of blood in the vault.. Cervix appears to be pinpoint at the external office. No CMT. No tenderness in adnexa.) Musculoskeletal: nl extremities to inspection Extremities: normal pulses Results Result Diagram: 05/21/17 1805 05/21/17 180 Results 24 hrs Laboratory Tests Test 05/21/17 18:05 05/21/17 19:35 05/21/17 20:09 White Blood Count 8.0 Red Blood Count 4.20 # Hemoglobin 13.2 # Hematocrit 38.4 # Mean Corpuscular Volume 91.4 Mean Corpuscular Hemoglobin 31.4 Mean Corpuscular Hemoglobin Concent 34.4 Red Cell Distribution Width 11.9 # Platelet Count 224 # Mean Platelet Volume 9.9 Neutrophils % 63.1 Lymphocytes % 27.1 Monocytes % 5.1 Eosinophils % 3.5 Basophils % 0.9 Nucleated Red Blood Cells % 0.0 Neutrophils # 5.0 Lymphocytes # 2.2 Monocytes # 0.4 Eosinophils # 0.3 Basophils # 0.1 Nucleated Red Blood Cells # 0.0 Sodium Level 140 Potassium Level 4.4 Chloride Level 104 Carbon Dioxide Level 24 Anion Gap 16 Blood Urea Nitrogen 9 Creatinine 0.55 Glucose Level 97 Calcium Level 9.3 Total Bilirubin 0.4 Direct Bilirubin 0.00 Indirect Bilirubin 0.4 Aspartate Amino Transf (AST/SGOT) 44 Alanine Aminotransferase (ALT/SGPT) 54 Alkaline Phosphatase 134 H Total Protein 7.8 Albumin 4.5 Globulin 3.30 H Albumin/Globulin Ratio 1.36 Beta HCG, Quantitative < 2.4 Prothrombin Time 12.4 Prothrombin Time Ratio 1.0 INR International Normalized Ratio 0.92 Activated Partial Thromboplast Time 26.9 Bedside Urine pH (LAB) 6.0 Bedside Urine Protein (LAB) Trace H Bedside Urine Glucose (UA) Negative Bedside Urine Ketones (LAB) Negative Bedside Urine Blood 3+ H Bedside Urine Nitrite (LAB) Negative Bedside Urine Leukocyte Esterase (L Negative Medications Medications Current Medications Lactated Ringer's 1,000 ml @ 125 mls/hr Q8H IV ; Start 05/21/17 at 23:00 Clindamycin HCl/ Dextrose 50 ml @ 50 mls/hr Q8 IVPB ; Start 05/22/17 at 06:00; Stop 05/22/17 at 06:59; Status UNV Gentamicin Sulfate (Gentamicin) 100 ml @ 80 mls/hr Q8 IVPB ; Start 05/22/17 at 06:00; Status UNV Procedures Procedures PROCEDURE: CT abdomen and pelvis without intravenous contrast. CLINICAL INDICATION: Lower abdominal pain. TECHNIQUE: CT of the abdomen/pelvis was performed utilizing axial images with reconstructions in sagittal and coronal planes. The administered radiation dose is CTDI 5.07 mGy, DLP 251.35 mGy-cm. One or more of the following dose reduction techniques were used: Automated exposure control, Adjustment of the mA and/or kV according to patient size, or Use of iterative reconstruction technique. DICOM images are available. COMPARISON: There are no similar studies submitted for comparison. Ultrasound of the pelvis from the same day. FINDINGS: Evaluation is moderately limited due to motion degradation. Lung bases: The lung bases are clear.The heart is normal size without pericardial effusion. CT ABDOMEN: Evaluation of the abdominal viscera is limited without intravenous contrast. Gastrointestinal tract: There is no bowel obstruction.The appendix is normal size without inflammatory changes.No abnormal colonic wall thickening is identified.There is no pneumoperitoneum. Liver: The liver is normal in size.There is no intrahepatic ductal dilatation. Gallbladder: The gallbladder is grossly unremarkable. Pancreas: The pancreas is grossly unremarkable. Spleen: The spleen is normal in size. Kidneys: The kidneys are normal in size and contour.No renal calculi identified.There is no evidence of hydronephrosis. Adrenal glands: The bilateral adrenal glands are unremarkable. Retroperitoneum: There is no retroperitoneal adenopathy.The aorta is normal in caliber. CT PELVIS: Pelvic organs: The uterus is mildly enlarged. There is a right ovarian cyst. Bladder: The bladder is unremarkable. There is mild pelvic free fluid. No pelvic adenopathy is identified. Osseous structures: No destructive lytic or blastic osseous lesion is identified. IMPRESSION: Evaluation of the abdominal viscera is limited without intravenous contrast. Evaluation is moderately limited due to motion degradation. 1. No acute abdominal pathology. 2. There is a right ovarian cyst. There is mild pelvic free fluid. Please refer to ultrasound of the pelvis report from the same day. Further findings as detailed above. RPTAT: HVF .Jovi Hall MD, Date Time Electronically viewed and signed by .Jovi Hall MD, on 05/21/2017 20:58 .F/ CC: ABRAN HIDALGO PA-C PROCEDURE: US Pelvis. CLINICAL INDICATION: Vaginal bleeding, pelvic pain 6 weeks TECHNIQUE: Multiple sonographic images of the pelvis were obtained utilizing a transabdominal and endovaginal technique. The images were reviewed on a PACS workstation. COMPARISON: OB ultrasound of 04/18/2017 FINDINGS: The uterus measures 9.2 x 4.8 x 6.5 cm. The thickness of the endometrium equals 1.7 cm. There is mixed echogenicity material with vascular flow in the endometrial cavity suggestive of fluid, blood products and retained products of conception. The right ovary measures 4 x 3.5 x 3.6 cm and contains a 3.2 x 2.4 x 2.4 cm simple appearing cyst. Color flow and spectral analysis demonstrates normal arterial flow in the right ovary. The left ovary is not seen. There is appearance of relatively small amount of complex fluid with echoes in the cul-de -sac suggestive of hemoperitoneum. IMPRESSION: Thickened endometrium. Mixed echogenicity material and vascular flow in the endometrial cavity suggestive of fluid, blood products and retained products of conception. 3.2 cm right ovarian simple cyst. Left ovary not seen. There is appearance of relatively small amount of complex fluid with echoes in the cul-de -sac suggestive of hemoperitoneum with an approximate 2.4 x 1.4 cm blood clot. Please see above. RPTAT: KRISTINE TYSON MD 13, 2017 23:19
[2017-05-22] VITALS (17 sets, daily range): BP systolic 101–168; BP diastolic 54–81; PULSE 69–86; RESP 16–24
[2017-05-22] MEDS: LACTATED RINGER'S 1,000 ML IV SCH ×4 (01:00→18:58)
[2017-05-22] MEDS ORDERED: CLINDAMYCIN 900 MG/D5W (PMX) 50 ML IVPB SCH (06:00)
[2017-05-22] MEDS: GENTAMICIN 120 MG/NS (PMX) 100 ML IVPB SCH ×3 (06:44→21:58)
[2017-05-22] MEDS: HYDROCODONE/APAP (5/325) TAB PO PRN ×3 (08:09→23:24)
[2017-05-22] MEDS ORDERED: FENTAnyl 50 MCG/ML VIAL ONE (17:00)
[2017-05-22] MEDS ORDERED: MIDAZOLAM 1 MG/ML 2 ML INJ ONE (17:00)
[2017-05-22] MEDS ORDERED: OXYTOCIN 10 UNIT INJ ONE (17:24)
[2017-05-22] MEDS ORDERED: PROPOFOL 20 ML ONE (17:34)
[2017-05-22] MEDS ORDERED: CEFAZOLIN 1 GM INJ ONE (17:34)
[2017-05-22] MEDS ORDERED: LIDOCAINE 2% (SDV) 5 ML INJ ONE (17:34)
[2017-05-22] MEDS ORDERED: ONDANSETRON 4 MG INJ ONE (17:35)
--- NOTE | 2017-05-22 18:14 | OPR ---
Operative Report Planned Procedure Free Text/Dictation May 22, 2017 Incomplete Procedure dilatation and curettage This patient 26 years old 3 para 224 weeks about a month ago she continued to have vaginal bleeding came to emergency room with some degree of vaginal bleeding the ultrasound showed remaining debris blood clot possible placental tissue she was taken to the operating room antibiotic was given she underwent a D&C Under satisfactory general anesthesia patient was placed in lithotomy position vaginal vaginal area were prepped and patient was draped. A bimanual pelvic examination was performed . The cervix was slightly open. The uterus was somewhat enlarged about 8 weeks gestational size adnexa appear to be normal. The vaginal area were prepped and patient was draped a weighted speculum was placed inside the vagina and anterior lip of the cervix was picked up. Tenaculum uterus sounded about 9 cm using a 6 mm curved vacuum curette part of the product of conception was removed . Patient received a gram of Ancef as a prophylactic measure she. She did not have any noticeable vaginal bleeding . At the end of the procedure she was transferred to the recovery room in stable condition .. Procedure date May 22, 2017 Procedure(s) D&C Performed by Sree RODRIGUEZ Artisan Plasterer none Pre-procedure diagnosis Retained products of conception plus vaginal bleeding Anesthesia Type: general Post-Procedure Post-procedure diagnosis The same Findings Live Baby [], Apgars [] and [], weight [], position [], [] presentation []cord. Estimated Blood Loss: minimal Specimen(s) Curettings Grafts/Implant(s) none Complication(s) none Pt Condition post procedure: stable Disposition: PACU Procedure Description As above JASMYN LUNA MD May 22, 2017 18:13
--- NOTE | 2017-05-22 19:14 | DS ---
Date/Time of Note Date/Time of Note DATE: 05/22/17 TIME: 19:10 Discharge Summary Admission/Discharge Info Admit Date/Time May 22, 2017 Discharge summary Discharge Date/Time May 25, 2014 7:11 PM Discharge Diagnosis Incomplete post D&C Patient Condition: Good Procedures Dilatation and curettage Hx of Present Illness 26 years old 3 para 2 who delivered prematurely 24 weeks ,and after a month complaining of vaginal bleeding. ultrasound showed retained products of conception she underwent a D&C . Post D&C doing well and discharged home to be followed by her network support engineer office. Hospital Course Hospitalization and dilatation and curettage under general anesthesia Home Meds Discontinued Scripts Acetaminophen* (Tylophen*) 500 Mg Capsule, 1 CAP PO Q6H Y for PAIN AND OR ELEVATED TEMP, #20 CAP Prov:EVA HUERTAS NP 12/24/16 Primary Care Provider Care Physician No Primary Pending Labs Laboratory Tests Test 05/21/17 19:35 05/21/17 20:09 Prothrombin Time 12.4Sec (11.9-14.9) Prothrombin Time Ratio 1.0 INR International Normalized Ratio 0.92 Activated Partial Thromboplast Time 26.9Sec (25.0-35.0) Bedside Urine pH (LAB) 6.0 (5.0-8.5) Bedside Urine Protein (LAB) Trace (NEGATIVE) Bedside Urine Glucose (UA) Negative (NEGATIVE) Bedside Urine Ketones (LAB) Negative (NEGATIVE) Bedside Urine Blood 3+ (NEGATIVE) Bedside Urine Nitrite (LAB) Negative (NEGATIVE) Bedside Urine Leukocyte Esterase (L Negative (NEGATIVE) JASMYN LUNA MD May 22, 2017 19:14
[2017-05-23 01:35] VITALS: BP 109/55; RESP 20
[2017-05-23] MEDS: GENTAMICIN 120 MG/NS (PMX) 100 ML IVPB SCH ×2 (05:25→14:00)
[2017-05-23] MEDS: LACTATED RINGER'S 1,000 ML IV SCH ×2 (05:29→15:00)
[2017-05-23] MEDS: HYDROCODONE/APAP (5/325) TAB PO PRN (05:50)
[2017-05-23] MEDS ORDERED: morphine 2 MG INJ IV PRN (07:00)
[2017-05-23 07:28] VITALS: BP 109/69; RESP 20
[2017-05-23 11:58] LABS: BASOPHIL # 0.1 10^3/ul (0.0-0.1); BASOPHILS % 0.9 % (0.0-2.0); EOSINOPHILS # 0.5 10^3/ul (0.0-0.5); EOSINOPHILS % 9.2 % (0.0-7.0); HEMATOCRIT 34.3 % (37.0-47.0); HEMOGLOBIN 11.7 g/dl (12.0-16.0); LYMPHOCYTES # 2.2 10^3/ul (0.8-2.9); LYMPHOCYTES % 40.3 % (15.0-51.0); MEAN CORPUSCULAR HEMOGLOBIN 31.5 pg (29.0-33.0); MEAN CORPUSCULAR HGB CONC 34.1 g/dl (32.0-37.0); MEAN CORPUSCULAR VOLUME 92.5 fl (82.0-101.0); MONOCYTE # 0.4 10^3/ul (0.3-0.9); MONOCYTES % 7.2 % (0.0-11.0); NEUTROPHIL # 2.3 10^3/ul (1.6-7.5); PLATELET COUNT 195 10^3/UL (140-415); RED BLOOD COUNT 3.71 10^6/ul (4.20-5.40); WHITE BLOOD COUNT 5.4 10^3/ul (4.8-10.8)
[2017-05-23 14:34] VITALS: BP 110/63; PULSE 78; RESP 18
== END 2017-05-23 16:10 | disposition home or self-care (01) ==
LOC: FTE 15:59 → MS1 23:00
PROVIDERS: ADMIT Obstetrics & Gynecology Obstetrics; ATTEND Obstetrics & Gynecology Obstetrics
DX: O03.4 Incomplete spontaneous abortion without complication (principal)
CPT/HCPCS: 59812; 74176; 76830; 76856; 80053; 81003; 84702; 85025; 85610; 85730; 86850; 86900; 86901; 87081; 88305; J0690; J1580; J2250; J2590; J3010; J7120; Z7500; Z7512; Z7610; G0378; J2405

== ENCOUNTER 2017-08-23 11:25 | Emergency (ER) | END 2017-08-23 14:08 | disposition home or self-care (01) ==

== ENCOUNTER 2017-12-23 11:33 | Emergency (ER) | END 2017-12-23 12:54 | disposition home or self-care (01) ==

== ENCOUNTER 2018-04-27 18:00 | Inpatient (IN) | END 2018-04-29 17:43 | disposition home or self-care (01) | DRG 807 ==

== ENCOUNTER 2019-02-12 21:53 | Emergency (ER) | payer MEDICAID ==
[~2019-02-12] VITALS: Ht 149.9 cm; Wt 47.7 kg
[~2019-02-12 21:53] MED LIST changes: +CEPH-443 PO; +RANI-535 PO
[2019-02-12 21:55] VITALS: BP 117/68; PULSE 99; RESP 19; Ht 149.9 cm; Wt 47.7 kg
[2019-02-12] MEDS ORDERED: ACETAMINOPHEN 325 MG TAB PO STA (22:21)
== END 2019-02-12 23:40 | disposition home or self-care (01) ==
LOC: FTE 21:53
DX: O20.9 Hemorrhage in early pregnancy, unspecified (principal); Z3A.09 9 weeks gestation of pregnancy
CPT/HCPCS: 36415; 76801; 81001; 84702; 85025; 86900; 86901; Z7502; Z7610